=== PATIENT | female | born 1965 | race Two or more races ===

== ENCOUNTER 2023-09-10 07:09 | Outpatient (CLI) | payer OTHER ==
[2023-09-10 08:49] LABS: PH,URINE 6.5 (5.0-8.0); URINE APPEARANCE Clear; URINE BILIRRUBIN Negative (NEGATIVE); URINE BLOOD Negative; URINE COLOR Yellow; URINE LEUKOCYTE Negative; URINE NITRATE Negative; URINE PROTEIN Negative (NEGATIVE); URINE UROBILINOGEN 0.2 E.U./dl
[2023-09-10 08:53] LABS: URINE BACTERIA 6.2 uL (0.0-1933); URINE EPITHELIAL CELLS 1.6 uL (0.0-38.8); URINE WBC 1.8 uL (0.0-23.2)
[2023-09-10 09:13] LABS: URINE GLUCOSE >=1000 MG/DL (NEGATIVE)
== END 2023-09-10 07:11 | disposition home or self-care (01) ==
LOC: LAB 07:09
PROVIDERS: ATTEND Anesthesiology
DX: N39.0 Urinary tract infection, site not specified (principal)